=== PATIENT | female | born 1985 | race Caucasian/White ===

== ENCOUNTER 2024-03-18 09:10 | Emergency (ER) | payer MEDICAID, OTHER ==
[~2024-03-18] VITALS: Ht 165.1 cm; Wt 94.0 kg
[2024-03-18 10:30] VITALS: TEMP 98.6; O2SAT 98
[2024-03-18] MEDS: HYDROmorphone HCL 2 MG/ML VL/or syr IM ONE (11:11)
[2024-03-18] MEDS: ONDANSETRON HCL 4 MG/2 ML VIAL IM ONE (11:11)
[2024-03-18] MEDS ORDERED: IBUP1TAB5 PO (12:19)
[2024-03-18] MEDS ORDERED: HYDR-4902 PO (12:19)
[2024-03-18] MEDS: MORPHINE SULFATE INJ 2 MG/ml SYRG IM ONE (12:59)
[2024-03-18 13:00] VITALS: BP 118/74; PULSE 88; RESP 20
== END 2024-03-18 13:08 | disposition home or self-care (01) ==
LOC: ER 09:10 → EDBD 09:10 → EDUNIT# 09:10 → ER 13:08
DX: S52.612A Displaced fracture of left ulna styloid process, initial encounter for closed fracture (principal); S52.572A Other intraarticular fracture of lower end of left radius, initial encounter for closed fracture; V43.52XA Car driver injured in collision with other type car in traffic accident, initial encounter; W22.11XA Striking against or struck by driver side automobile airbag, initial encounter; Y93.89 Activity, other specified; Y92.488 Other paved roadways as the place of occurrence of the external cause; Y99.8 Other external cause status
CPT/HCPCS: 71045; 73110; 93005; 96372; 99285; J1170; J2270; J2405